=== PATIENT | female | born 1955 | race Two or more races ===

== ENCOUNTER 2018-01-09 13:22 | Outpatient (CLI) | payer OTHER | END 2018-01-09 13:35 | disposition home or self-care (01) | LOC: MAMO-SONO 13:22 | DX: Z12.31 Encounter for screening mammogram for malignant neoplasm of breast (principal); N64.0 Fissure and fistula of nipple ==

== ENCOUNTER 2019-02-06 13:04 | Outpatient (CLI) | payer OTHER | END 2019-02-06 16:14 | disposition home or self-care (01) | LOC: MAMO-SONO 13:04 | DX: N64.4 Mastodynia (principal); Z12.31 Encounter for screening mammogram for malignant neoplasm of breast; Z87.898 Personal history of other specified conditions ==

== ENCOUNTER 2021-12-15 11:10 | Outpatient (CLI) | payer OTHER | END 2021-12-15 11:15 | disposition home or self-care (01) | LOC: RAD 11:10 | DX: M25.512 Pain in left shoulder (principal) ==